=== PATIENT | male | born 1945 | race Caucasian/White ===

== ENCOUNTER → 2017-02-10 | Outpatient (CLI) | payer MEDICARE, OTHER ==
[~2017-02-10] MED LIST: AMARYL2 MG PO; ANDROGEL1% TP; ASPIRIN LOW DOS81 MG PO; AUGMENTIN 875875 MG PO; FENOFIBRIC ACI135 M1 PO; FLOVENT DI50 MCG/Act IH; FOSINOPRIL SODI40 MG PO; GLUCOPHAGE500 M1 PO; HYDROCHLOROTHIA25 MG PO; LANTUS100 U/ML SC; LASIX40 MG PO; LIPITOR40 MG PO; MEDROL DOSEPAK4 MG PO; METOPROLOL SUC100 M1 PO; NEURONTIN300 MG PO; NORVASC5 MG PO; OXYCODONE/APAP1 TA8 PO; OXYGEN NAS; SPIRIVA 5 CAPS18 MCG INH; SYMBICORT1 AE1 INH; VITAMIN D5000 UNIT PO
== END | disposition home or self-care (01) ==
LOC: CARD 02-08 08:30
DX: I51.7 Cardiomegaly (principal); I48.91 Unspecified atrial fibrillation; Z95.3 Presence of xenogenic heart valve

== ENCOUNTER → 2017-04-21 | Outpatient (CLI) | payer MEDICARE, OTHER | END | disposition home or self-care (01) | LOC: WOUNDCARE 02:17 | DX: I87.333 Chronic venous hypertension (idiopathic) with ulcer and inflammation of bilateral lower extremity (principal); E11.622 Type 2 diabetes mellitus with other skin ulcer; L97.212 Non-pressure chronic ulcer of right calf with fat layer exposed; L97.222 Non-pressure chronic ulcer of left calf with fat layer exposed; I89.0 Lymphedema, not elsewhere classified; E11.51 Type 2 diabetes mellitus with diabetic peripheral angiopathy without gangrene; E11.41 Type 2 diabetes mellitus with diabetic mononeuropathy; G58.9 Mononeuropathy, unspecified; Z87.891 Personal history of nicotine dependence ==

== ENCOUNTER 2017-04-29 01:53 | Inpatient (IN) | payer MEDICARE, OTHER ==
[~2017-04-29] VITALS: Ht 167.6 cm; Wt 117.0 kg
[2017-04-29 10:45] VITALS: BP 104/68
--- NOTE | 2017-04-29 11:00 | NUR ---
A 71, admitted to , under the services of DORIAN Barnard DO with a diagnosis of BILATERAL LOWER EXTREMITY CELLULITIS. Chief complaint is CELLULITIS. Patient arrived via bed from NH. Initial assessment completed. Vital signs taken and recorded. DORIAN BARNARD DO notified of admission to the unit. Orders received. See assessment for past medical history, medications and allergies. Patient and/or family oriented to unit. [address] visitation policy reviewed. Clothing/patient valuable form completed. RICO GLOVER
[2017-04-29] MEDS ORDERED: MULTIVITAMINS1 EAC5 PO (11:50)
[2017-04-29] MEDS ORDERED: NIACOR500 MG PO (11:52)
[2017-04-29] MEDS ORDERED: ADVAIR 250/501 EA INH (11:53)
[2017-04-29] MEDS ORDERED: LANTUS SOL100 UNIT/1 SQ (11:55)
[2017-04-29] MEDS ORDERED: METAMUCIL PLUS1 EACH PO (11:56)
[2017-04-29] MEDS ORDERED: FLONASE ALLERG9.9 ML NAS (11:57)
[2017-04-29] MEDS ORDERED: FERROUS SULFAT324 M2 PO (11:58)
[2017-04-29] MEDS ORDERED: POTASSIUM CHLO20 ME3 PO (12:00)
[2017-04-29] MEDS ORDERED: STOOL SOFTENER100 M3 PO (12:00)
[2017-04-29 12:31] LABS: BASO # 0.1 10*3/uL (0.0-0.1); BASO % 0.4 % (0.0-1.0); EOS # 0.4 10*3/uL (0.0-0.4); EOS % 2.9 % (1.0-4.0); HEMATOCRIT 44.7 % (42.0-52.0); HEMOGLOBIN 13.9 g/dl (14.0-18.0); LYMPH % 8.2 % (27.0-41.0); MEAN CELL VOLUME 90.5 fl (80.0-94.0); MEAN CORPUSCULAR HGB 28.1 pg (27.0-31.0); MEAN CORPUSCULAR HGB CONC 31.1 g/dl (33.0-37.0); MEAN PLATELET VOLUME 9.2 fl (9.6-12.3); MONO # 1.1 10*3/uL (0.1-1.0); NEUT # 9.6 10*3/uL (2.3-7.9); NEUT % 79.1 % (47.0-73.0); PLATELET COUNT AUTOMATED 210 10*3/uL (130-400); RED BLOOD COUNT 4.94 10*6/uL (4.50-5.90); RED CELL DISTRI WIDTH 16.9 % (0-14.5); WHITE BLOOD COUNT 12.2 10*3/uL (4.8-10.8)
[2017-04-29 12:41] LABS: ACT PARTIAL THROMBO TIME 43.5 SECONDS (20.8-31.5); INTERNATIONAL NORM RATIO 3.1 (2.0-3.5)
[2017-04-29 12:47] LABS: ALBUMIN 3.2 gm/dl (3.1-4.5); CREATININE 2.45 mg/dL (0.70-1.30); POTASSIUM 4.7 mmol/L (3.5-5.1); TOTAL PROTEIN 8.2 gm/dL (6.4-8.2)
--- NOTE | 2017-04-29 15:37 | NUR ---
BRE MCKEON [id number] Please refer to the physician's history and physical for past medical history, comorbid conditions, and allergies. Diagnosis: MARY KAY LOWER EXTREMETY CELLULITIS Oj Score: 19,LOW OR NO RISK WOUND DESCRIPTIONS: Location of the wound: right lower leg Type of wound: Thickness: Full Size: 26cm x 28.5cm x 0.1cm Tunneling: none Undermining: none Sinus Tract: none Presence of Exudate: Serous Amount: Heavy Color: Yellow Odor: Sweet Periwound Skin Appearance: Erythema Wound edges: approximated Pain (associated with wound): patient states tender to touch How does patient state this happened? patient states he went to Dr. Wilson for his legs. Dr. Wilson sent him to Dr. Poe and Dr. Poe sent him to the Wound Care center. If wound is on legs/feet or hands, capillary refill time, pulses, color temp, sensation: Capillary refill <3 seconds Location of the wound: left lower leg Type of wound: Thickness: Full Size: 29cm x 30cm x 0.1cm Tunneling: none Undermining: none Sinus Tract: none Presence of Exudate: Serous Amount: Heavy Color: Yellow Odor: Sweet Periwound Skin Appearance: Erythema Wound edges: approximated Pain (associated with wound): patient states tender to touch How does patient state this happened? patient states he seen Dr. Wilson for his legs. Dr. Wilson sent him to Dr. Poe and Dr. Poe sent him the Wound Care center. If wound is on legs/feet or hands, capillary refill time, pulses, color temp, sensation: Capillary refill <3seconds Surface the patient is resting on: Isoflex SKIN PREVENTION RECOMMENDATION: 1. Pressure redistribution support surface as appropriate 2. Elevate heels 3. Remove boots/TEDS every shift and reapply 4. Head of bed 30 degrees as tolerated 5. Assess nutrition and hydration 6. Manage moisture 7. Avoid the use of containment devices while in bed 8. Use absorptive products on surfaces limit layers of linens on bed 9. Turn and reposition every 1-2 hours in bed and every 1 hour in chair as tolerated 10. Weight shifts every 15 minutes while up in chair 11. Offloading with pillows or device to keep heels elevated off bed 12. Monitor skin at least every shift 13. Inspect under medical devices twice a day WOUND TREATMENT RECOMMENDATIONS: Cleanse BLE with NSS. Apply adaptic cover with Maxorb II apply ABD and secure with kerlix. Consult Dr. Lucas for possible debridement and patient follows him in wound care center.
--- NOTE | 2017-04-29 16:45 | NUR ---
UPON RETURNING FROM US, WENT INTO PATIENT'S ROOM TO GIVE PAIN MEDICATION, PT STATES THAT HE "JUST TOOK TWO OF HIS OWN PAIN MEDS." HIS PAIN MEDS ARE PERCOCET 10S. I EXPLAINED TO HIM AND HIS THAT HE IS NOT ALLOWED TO TAKE ANY MORE OF HIS HOME MEDS WHILE IN THE HOSPITAL TO HELP ENSURE HIS SAFETY. THEY AGREED. I HELD THE PAIN MED WE HAD FOR HIM UNTIL LATER THIS EVENING.
[2017-04-29] MEDS ORDERED: SERTRALINE HYDR50 MG PO (18:23)
[2017-04-29] MEDS ORDERED: PERCOCET 10-321 EACH PO (18:26)
[2017-04-29] MEDS ORDERED: METAMUCIL0.52 G1 PO (18:29)
[2017-04-29] MEDS ORDERED: WARFARIN2 MG PO (18:31)
[2017-04-29] MEDS ORDERED: RESTORIL15 MG PO (18:31)
[2017-04-29] MEDS ORDERED: JANTOVEN1 MG PO (18:44)
[2017-04-29] MEDS ORDERED: FLOVENT HFA12 G1 INH (18:46)
[2017-04-29] MEDS ORDERED: FORTESTA60 GM TD (18:48)
--- NOTE | 2017-04-29 19:34 | NUR ---
ANSWERING SERVICE NOTIFIED OF CONSULT, COVERING
--- NOTE | 2017-04-29 20:00 | NUR ---
DR. CORTES NOTIFIED THAT PATIENT'S HOME MEDS WERE VERIFIED BY DAYLIGHT SHIFT AND NEEDED REORDERED. PATIENT STATED HE SPECIFICALLY NEEDED HIS NEURONTIN BUT WANTED ALL OF HIS HOME MEDS ORDERED.
--- NOTE | 2017-04-29 20:32 | NUR ---
MEDICATED WITH NORCO FOR COMPLAINTS OF LEG PAIN. WILL CONTINUE TO MONITOR. CALL LIGHT IN REACH.
--- NOTE | 2017-04-29 21:45 | NUR ---
WENT IN TO TAKE PATIENT'S BLOOD GLUCOSE AND HE WAS ASKING IF HIS HOME MEDICATIONS WERE ORDERED YET AND I TOLD HIM THE ONLY ONE THAT WAS ORDERED WAS HIS NEURONTIN. HE BECAME FURIOUS AND CALLED HIS AND TOLD HER TO COME PICK HIM UP. HE STATED HE WAS GOING HOME BECAUSE HE HAD BEEN HERE SINCE 9AM AND STILL HASN'T GOTTEN HIS MEDS ORDERED. HE SAID HE COULD TAKE HIS MEDS WHEN HE GETS HOME AND THIS WAS TOTALLY UNACCEPTABLE AND HE WOULD BE GOING TO [place] TOMORROW. HE ALSO STATED THE MORPHINE AND NORCO WE WERE GIVING HIM FOR PAIN WAS NOT WORKING AND THAT WAS THE REASON HE CAME HERE TO HE MIGHT WELL LEAVE. DR. CORTES AND LATEX DIPPER NOTIFIED THAT PATIENT WAS LEAVING AMA AND DR. CORTES TOLD ME TO TELL PATIENT HE HIGHLY ADVISED AGAINST IT AND HE WOULD GET TO HIS MEDICATIONS SOON POSSIBLE THAT HE HAD ADMISSIONS. EXPLAINED THIS TO PATIENT AND HE STARTED SCREAMING AGAIN. PATIENT LEFT FLOOR.
--- NOTE | 2017-04-29 22:05 | NUR ---
PATIENT REFUSED TO HAVE WOUND PHOTOS TAKEN. SAID HE WAS LEAVING.
--- NOTE | 2017-04-29 22:08 | NUR ---
DR. CORTES CAME TO FLOOR TO TALK TO PATIENT BUT PATIENT WAS ALREADY GONE.
== END 2017-04-29 22:05 | disposition left against medical advice (07) | DRG 872 ==
LOC: WOUNDCARE 01:53 → 5E 10:30 → WOUNDCARE 12:07 → 5E 12:19
PROVIDERS: Internal Medicine; ADMIT Emergency Medicine
DX: A41.9 Sepsis, unspecified organism (principal); E11.22 Type 2 diabetes mellitus with diabetic chronic kidney disease; I48.0 Paroxysmal atrial fibrillation; N18.4 Chronic kidney disease, stage 4 (severe); E44.1 Mild protein-calorie malnutrition; L03.115 Cellulitis of right lower limb; Z68.41 Body mass index [BMI] 40.0-44.9, adult; E66.01 Morbid (severe) obesity due to excess calories; J43.9 Emphysema, unspecified; D64.9 Anemia, unspecified; E78.00 Pure hypercholesterolemia, unspecified; I12.9 Hypertensive chronic kidney disease with stage 1 through stage 4 chronic kidney disease, or unspecified chronic kidney disease; Z53.21 Procedure and treatment not carried out due to patient leaving prior to being seen by health care provider; I25.2 Old myocardial infarction; Z95.2 Presence of prosthetic heart valve; Z87.891 Personal history of nicotine dependence; Z83.6 Family history of other diseases of the respiratory system; Z82.49 Family history of ischemic heart disease and other diseases of the circulatory system; Z79.01 Long term (current) use of anticoagulants; Z79.82 Long term (current) use of aspirin; Z79.4 Long term (current) use of insulin; Z79.899 Other long term (current) drug therapy